=== PATIENT | male | born 1970 | race Caucasian/White ===

== ENCOUNTER 2023-10-29 13:16 | Inpatient (IN) | payer BC ==
[2023-10-29 14:42] VITALS: BMI 33.2
[2023-10-29] MEDS ORDERED: chlordiazePOXIDE HCL 25 MG CAPSULE PO ONE (14:54)
[2023-10-29] MEDS ORDERED: cloNIDine HCL 0.1 MG TABLET ONE ×2 (14:54→17:08)
[2023-10-29] MEDS ORDERED: BENZONATATE 200 MG CAPSULE PO PRN (14:55)
[2023-10-29] MEDS ORDERED: guaiFENesin 600 MG TABLET.ER (FP) PO PRN (14:55)
[2023-10-29] MEDS ORDERED: DICYCLOMINE HCL 10 MG CAPSULE PO PRN (14:55)
[2023-10-29] MEDS ORDERED: MAGNESIUM HYDROX 2400MG/30ML ORAL SUSPENSION 30 ML CUP PO PRN (14:55)
[2023-10-29] MEDS ORDERED: LOPERAMIDE HCL 2 MG CAPSULE PO PRN (14:55)
[2023-10-29] MEDS ORDERED: ACETAMINOPHEN 325 MG TABLET (FP) PO PRN (14:55)
[2023-10-29] MEDS ORDERED: NALOXONE HCL (KLOXXADO) 8 MG SPRAY NS PRN (14:55)
[2023-10-29] MEDS ORDERED: NALOXONE HCL 0.4 MG/ML VIAL IM PRN (14:55)
[2023-10-29] MEDS ORDERED: BISMUTH SUBSALICYLATE 262 MG/15 ML BTL PO PRN (14:55)
[2023-10-29] MEDS ORDERED: POLYETHYLENE GLYCOL (HEALTHYLAX) 3350 17 GM PACKET PO PRN (14:55)
[2023-10-29] MEDS ORDERED: ONDANSETRON *ODT* 4 MG TABLET SL PRN (14:55)
[2023-10-29] MEDS ORDERED: BENZOCAINE/MENTHOL (CHLORASEPTIC ) LOZENGE MM PRN (14:55)
[2023-10-29] MEDS ORDERED: hydrOXYzine PAMOATE 25 MG CAPSULE (FP) PO PRN (14:55)
[2023-10-29] MEDS ORDERED: MAG HYDROX/AL HYDROX/SIMETH 30 ML UNIT-DOSE CUP PO PRN (14:55)
[2023-10-29] MEDS ORDERED: cloNIDine HCL 0.1 MG TABLET PO ONE ×3 (15:00→23:38)
[2023-10-29] MEDS ORDERED: PRENATAL VITAMINS W/ FOLIC ACID TABLET (FP) PO ONE (15:25)
[2023-10-29] MEDS: PRENATAL VITAMINS W/ FOLIC ACID TABLET (FP) PO SCH (15:31)
[2023-10-29] MEDS: LISINOPRIL 10 MG TABLET PO SCH (15:31)
[2023-10-29] MEDS ORDERED: cloNIDine HCL 0.1 MG TABLET PO STA (16:13)
[2023-10-29] MEDS: chlordiazePOXIDE HCL 25 MG CAPSULE PO PRN (17:10)
[2023-10-29] MEDS ORDERED: chlordiazePOXIDE HCL 25 MG CAPSULE ONE (17:12)
[2023-10-29] MEDS ORDERED: amLODIPine BESYLATE 10 MG TABLET (FP) PO ONE (20:49)
[2023-10-29] MEDS: THIAMINE HCL 100 MG TABLET (FP) PO SCH (22:07)
[2023-10-29] MEDS: BACITRACIN 0.9 GM PACKET TP SCH (22:08)
[2023-10-29] MEDS: MELATONIN 5 MG TABLETS PO SCH (22:08)
[2023-10-29] MEDS: chlordiazePOXIDE HCL 25 MG CAPSULE PO SCH ×2 (22:09)
[2023-10-29] MEDS ORDERED: LISINOPRIL 20 MG TABLET PO ONE (23:38)
[2023-10-30] MEDS: chlordiazePOXIDE HCL 25 MG CAPSULE PO SCH ×5 (05:24→22:08)
[2023-10-30] MEDS: METHOCARBAMOL 500 MG TABLET PO PRN ×2 (05:24→17:09)
[2023-10-30] MEDS: PRENATAL VITAMINS W/ FOLIC ACID TABLET (FP) PO SCH (10:12)
[2023-10-30] MEDS: LISINOPRIL 10 MG TABLET PO SCH (10:12)
[2023-10-30] MEDS: BACITRACIN 0.9 GM PACKET TP SCH ×2 (10:12→22:08)
[2023-10-30 10:38] LABS: HEMOGLOBIN 12.4 GM/dL (11.7-16.9); MCH 26.7 pg (25.7-33.7); MCHC 32.6 g/dl (32.0-35.9); MEAN CELL VOLUME 81.9 fl (80-96); MEAN PLT VOLUME 7.5 fl (7.5-11.1); PLATELET COUNT 147 10^3/uL (134-434); RBC 4.64 M/mm3 (4.00-5.60); RDW 20.1 % (11.9-15.9); WHITE BLOOD COUNT 2.6 K/mm3 (4.0-10.0)
[2023-10-30 10:54] LABS: CHLORIDE 95 mmol/L (98-107); POTASSIUM 4.6 mmol/L (3.5-5.1); SODIUM 135 mmol/L (136-145)
[2023-10-30 10:59] LABS: CALCIUM 9.6 mg/dL (8.5-10.1)
[2023-10-30 11:00] LABS: ANION GAP 6 mmol/L (4-13); BLOOD UREA NITROGEN 8.3 mg/dL (7-18); CO2 34 mmol/L (21-32); GLUCOSE,RANDOM 111 mg/dL (74-106)
[2023-10-30 11:03] LABS: CREATININE 0.6 mg/dL (0.55-1.3); SGOT/AST 120 U/L (15-37); SGPT/ALT 94 U/L (13-61)
[2023-10-30 11:05] LABS: BILIRUBIN,TOTAL 0.9 mg/dL (0.2-1); TOT PROT 7.7 g/dl (6.4-8.2)
[2023-10-30 11:06] LABS: ALBUMIN 2.9 g/dl (3.4-5.0); ALK PHOS 161 U/L (45-117)
[2023-10-30] MEDS: NICOTINE 21 MG/24 HOURS TOPICAL PATCH TD SCH (11:09)
[2023-10-30] MEDS: methaDONE HCL 40 MG DISPERSABLE TABLET PO SCH (11:34)
[2023-10-30] MEDS ORDERED: cloNIDine HCL 0.1 MG TABLET PO ONE (14:21)
[2023-10-30] MEDS: amLODIPine BESYLATE 10 MG TABLET (FP) PO SCH (14:38)
[2023-10-30] MEDS: cloNIDine HCL 0.1 MG TABLET PO PRN ×2 (14:38→22:08)
[2023-10-30] MEDS: LACTULOSE 20 GM/30 ML UDC (FOR ORAL USE ONLY) PO SCH ×2 (14:39→22:09)
[2023-10-30] MEDS: THIAMINE HCL 100 MG TABLET (FP) PO SCH (22:08)
[2023-10-30] MEDS: MELATONIN 5 MG TABLETS PO SCH (22:08)
[2023-10-31] MEDS: chlordiazePOXIDE HCL 25 MG CAPSULE PO PRN (01:08)
[2023-10-31] MEDS: cloNIDine HCL 0.1 MG TABLET PO PRN (01:11)
[2023-10-31] MEDS: chlordiazePOXIDE HCL 25 MG CAPSULE PO SCH ×4 (05:12→22:08)
[2023-10-31] MEDS: methaDONE HCL 40 MG DISPERSABLE TABLET PO SCH (05:13)
[2023-10-31] MEDS: LACTULOSE 20 GM/30 ML UDC (FOR ORAL USE ONLY) PO SCH ×3 (05:26→22:38)
[2023-10-31] MEDS: amLODIPine BESYLATE 10 MG TABLET (FP) PO SCH (10:22)
[2023-10-31] MEDS: LISINOPRIL 10 MG TABLET PO SCH (10:22)
[2023-10-31] MEDS: BACITRACIN 0.9 GM PACKET TP SCH ×2 (10:22→22:08)
[2023-10-31] MEDS: METHOCARBAMOL 500 MG TABLET PO PRN ×2 (10:23→22:11)
[2023-10-31] MEDS: PRENATAL VITAMINS W/ FOLIC ACID TABLET (FP) PO SCH (10:24)
[2023-10-31] MEDS: NICOTINE 21 MG/24 HOURS TOPICAL PATCH TD SCH (10:25)
[2023-10-31] MEDS: IBUPROFEN 600 MG TABLET (FP) PO PRN (17:28)
[2023-10-31] MEDS: MELATONIN 5 MG TABLETS PO SCH (22:08)
[2023-10-31] MEDS: THIAMINE HCL 100 MG TABLET (FP) PO SCH (22:08)
[2023-11-01] MEDS ORDERED: chlordiazePOXIDE HCL 10 MG CAPSULE PO PRN
[2023-11-01] MEDS ORDERED: chlordiazePOXIDE HCL 10 MG CAPSULE PO SCH (05:00)
[2023-11-01] MEDS: methaDONE HCL 40 MG DISPERSABLE TABLET PO SCH (05:28)
[2023-11-01] MEDS: LACTULOSE 20 GM/30 ML UDC (FOR ORAL USE ONLY) PO SCH ×3 (05:29→22:11)
[2023-11-01] MEDS: IBUPROFEN 400 MG TABLET (FP) PO PRN ×2 (05:31→17:26)
[2023-11-01] MEDS ORDERED: LORazepam 1 MG TABLET PO PRN (09:06)
[2023-11-01] MEDS: LORazepam 1 MG TABLET PO SCH ×3 (10:08→22:10)
[2023-11-01] MEDS: PRENATAL VITAMINS W/ FOLIC ACID TABLET (FP) PO SCH (10:09)
[2023-11-01] MEDS: BACITRACIN 0.9 GM PACKET TP SCH ×2 (10:10→22:09)
[2023-11-01] MEDS: amLODIPine BESYLATE 10 MG TABLET (FP) PO SCH (10:11)
[2023-11-01] MEDS: LISINOPRIL 10 MG TABLET PO SCH (10:11)
[2023-11-01] MEDS: NICOTINE 21 MG/24 HOURS TOPICAL PATCH TD SCH (10:11)
[2023-11-01] MEDS: THIAMINE HCL 100 MG TABLET (FP) PO SCH (22:10)
[2023-11-01] MEDS: MELATONIN 5 MG TABLETS PO SCH (22:12)
[2023-11-01] MEDS: IBUPROFEN 600 MG TABLET (FP) PO PRN (22:13)
[2023-11-02] MEDS ORDERED: chlordiazePOXIDE HCL 10 MG CAPSULE PO SCH (05:00)
[2023-11-02] MEDS: LORazepam 0.5 MG TABLET PO SCH ×4 (05:41→22:08)
[2023-11-02] MEDS: methaDONE HCL 40 MG DISPERSABLE TABLET PO SCH (05:41)
[2023-11-02] MEDS: LACTULOSE 20 GM/30 ML UDC (FOR ORAL USE ONLY) PO SCH ×2 (05:42→13:10)
[2023-11-02] MEDS: IBUPROFEN 600 MG TABLET (FP) PO PRN (05:46)
[2023-11-02] MEDS: LISINOPRIL 10 MG TABLET PO SCH (10:03)
[2023-11-02] MEDS: BACITRACIN 0.9 GM PACKET TP SCH ×2 (10:03→22:08)
[2023-11-02] MEDS: amLODIPine BESYLATE 10 MG TABLET (FP) PO SCH (10:03)
[2023-11-02] MEDS: PRENATAL VITAMINS W/ FOLIC ACID TABLET (FP) PO SCH (10:04)
[2023-11-02] MEDS: NICOTINE 21 MG/24 HOURS TOPICAL PATCH TD SCH (10:05)
[2023-11-02] MEDS: THIAMINE HCL 100 MG TABLET (FP) PO SCH (22:08)
[2023-11-02] MEDS: MELATONIN 5 MG TABLETS PO SCH (22:09)
[2023-11-03] MEDS ORDERED: chlordiazePOXIDE HCL 10 MG CAPSULE PO ONE (05:00)
[2023-11-03] MEDS ORDERED: LORazepam 0.5 MG TABLET PO ONE (05:00)
[2023-11-03] MEDS: methaDONE HCL 40 MG DISPERSABLE TABLET PO SCH (05:23)
[2023-11-03] MEDS: cloNIDine HCL 0.1 MG TABLET PO PRN (05:27)
[2023-11-03] MEDS: BACITRACIN 0.9 GM PACKET TP SCH (09:23)
[2023-11-03] MEDS: PRENATAL VITAMINS W/ FOLIC ACID TABLET (FP) PO SCH (09:26)
[2023-11-03] MEDS: LISINOPRIL 10 MG TABLET PO SCH (09:26)
[2023-11-03] MEDS: amLODIPine BESYLATE 10 MG TABLET (FP) PO SCH (09:26)
[2023-11-03] MEDS: NICOTINE 21 MG/24 HOURS TOPICAL PATCH TD SCH (09:26)
[2023-11-03 09:46] VITALS: BP 159/98; PULSE 96; RESP 18; TEMP 98.4
== END 2023-11-03 09:28 | disposition home or self-care (01) | DRG 773 ==
LOC: YASAS 13:16 → Y6N 16:59
PROVIDERS: ADMIT Allergy & Immunology; ATTEND Allergy & Immunology
PROC: HZ2ZZZZ Detoxification Services for Substance Abuse Treatment (ICD-10-PCS; principal; 2023-10-29)
DX: F10.230 Alcohol dependence with withdrawal, uncomplicated (principal); F11.20 Opioid dependence, uncomplicated; F17.210 Nicotine dependence, cigarettes, uncomplicated; E72.20 Disorder of urea cycle metabolism, unspecified; I10 Essential (primary) hypertension; Z88.2 Allergy status to sulfonamides
CPT/HCPCS: 36415; 80053; 80307; 82140; 83036; 84450; 85027; 86780; 87635; 93005; 93010